=== PATIENT | female | born 1990 | race Hispanic/Latino ===

== ENCOUNTER → 2024-10-12 15:49 | Outpatient (CLI) | payer OTHER, SELFPAY | PROVIDERS: Visit Provider Registered Nurse | DX: R30.0 Dysuria (principal) | CPT/HCPCS: 87086 ==

== ENCOUNTER → 2024-10-22 14:05 | Outpatient (CLI) | payer OTHER, SELFPAY ==
[2024-10-22 14:35] LABS: Add Manual Diff / Slide Review NO; Basophils Absolute Auto 100 /uL (0-100); Basophils Percent Auto 0.5 % (0-2); Eosinophils Absolute Auto 100 /uL (0-450); Eosinophils Percent Auto 0.9 % (2-4); Hematocrit 36.3 % (36-46); Hemoglobin 12.6 g/dL (12.0-16.0); Lymphocytes Absolute Auto 2600 /uL (1100-4500); Lymphocytes Percent Auto 22.6 % (25-40); Mean Corpuscular HGB Conc 34.7 % (30-36); Mean Corpuscular Hemoglobin 31.5 PG (26-34); Mean Corpuscular Volume 90.8 fL (80-100); Monocytes Absolute Auto 700 /uL (0-900); Monocytes Percent Auto 5.9 % (3-14); Neutrophils Absolute Auto 8100 /uL (1500-7000); Neutrophils Percent Auto 70.1 % (50-75); Platelet Count 260 X10^3/uL (150-400); Red Cell Distribution Width 13.2 % (11.6-14.8); White Blood Cell Count 11.5 X10^3/uL (4.5-11.0)
[2024-10-22 14:44] LABS: Alanine Aminotransferase 29 IU/L (<35); Albumin 4.1 g/dL (3.5-5.0); Albumin Globulin Ratio 1.4 (1.0-2.8); Alkaline Phosphatase 60 U/L (38-126); Aspartate Aminotransferase 35 IU/L (14-36); BUN Creatinine Ratio 11.6 (6-22); Bilirubin Total 0.3 mg/dL (0.2-1.3); Blood Urea Nitrogen 5 mg/dL (7-17); Calcium 9.3 mg/dL (8.4-10.2); Carbon Dioxide 21 mmol/L (22-32); Chloride 104 mmol/L (98-107); Estimated Glomerular Filt Rate > 60 mL/min (>60); Globulin 2.9 g/dL (1.7-4.1); Glucose 86 mg/dL (70-99); HEMOLYSIS < 15 (0-50); Potassium 3.6 mmol/L (3.4-5.1); Sodium 134 mmol/L (137-145)
[2024-10-22 19:05] LABS: Hepatitis B Surface Antigen NEGATIVE s/c (NEGATIVE); Rubella Antibody IgG 51.1 IU/mL (>15)
[2024-10-22 19:12] LABS: HIV 1 & 2 Ab/Ag 4th Gen Combo NEGATIVE (NEGATIVE); Hep C Virus Ab w/Reflex Quant NEGATIVE s/c (NEGATIVE)
[2024-10-24 04:36] LABS: RPR Screen Non Reactive (Non Reactive)
[2024-10-24 05:41] LABS: Varicella IgG Antibody Reactive (Non Reactive)
== END ==
PROVIDERS: Referring Provider Family Medicine; Visit Provider Family Medicine
DX: O09.819 Supervision of pregnancy resulting from assisted reproductive technology, unspecified trimester (principal)
CPT/HCPCS: 36415; 80053; 80055; 86787; 86803; 86850; 86900; 86901; 87389

== ENCOUNTER → 2024-11-27 06:55 | Outpatient (CLI) | payer OTHER, SELFPAY ==
--- NOTE | 2024-11-27 07:00 | DI.US.S_ITS ---
PROCEDURE: US OB >= 14 WEEKS FETUS INDICATIONS: anatomy scan OUTSIDE/PRIOR DATING DATA: The calculations are made using the IVF TASHA of 04/04/2025. TECHNIQUE: Real-time scanning was performed of the fetus, with image documentation and biometric measurements. Endovaginal scanning: Not performed COMPARISON: None. FINDINGS: General: A single living intrauterine gestation is present. Presentation: Vertex. Placenta: Placental position is posterior, without previa. Amniotic fluid index: 19.8 cm, normal range is 5-24 cm. Single deepest vertical pocket is 6.3 cm. heart rate: 149 beats per minute. Maternal cervical canal: Closed and measures 4.3 cm long. Normal lower limit is 2.5 cm. biometrics: Biparietal diameter: 5.4 cm, 22 weeks, 3 days. Head circumference: 20.2 cm, 22 weeks, 3 days. Abdominal circumference: 16.9 cm, 21 weeks, 6 days. Femur length: 3.9 cm, 22 weeks, 3 days. Clinically estimated gestational age: 21 weeks, 3 days Composite gestational age from present scan: 21 weeks, 5 days Estimated weight and percentile: 482 g, 69% Anatomic survey: Neuro: Ventricles are non-dilated at less than 10 mm. Cisterna magna is normal at 3-11 mm. Cerebellum is normal in size and morphology. Nuchal skin fold: Normal at less than 6 mm between 14-21 weeks gestational age. Face: Nose and lips, facial profile are normal. Spine: No evidence for spina bifida. Heart: 4-chambered heart is present, with normal ventricular outflow tracts. Diaphragm: Diaphragm is intact. Stomach: Left-sided stomach is present. Kidneys: No hydronephrosis. Normal is less than 5 mm in 2nd trimester, less than 7 mm in 3rd trimester. Cord: 3-vessel cord has orthotopic insertion. Bladder: Normal in size. Extremities: All 4 extremities identified. IMPRESSION: 1. Single live intrauterine gestation with fetus in vertex presentation. heart rate is 149 beats per minute. Normal MICAH at 19.8 cm. 2. Estimated weight is at 69%. 3. Normal anatomic survey. 4. Normal appearing placenta. Placenta position is posterior without previa. We strive to produce accurate, complete, and clear reports of imaging services. To assist us in improving patient care, this report was composed using standard report templates and voice recognition software. Therefore, it may contain abnormal punctuation, insertions and/or omissions. Occasional wrong-word or sound-alike substitutions may occur. Though we review the report and make efforts to correct it, we do recommend that the report be read carefully in proper context to recognize any text inaccuracies. Dictated by: Glenn Guajardo M.D. on 11/27/2024 at 14:12 Approved by: Glenn Guajardo M.D. on 11/27/2024 at 14:14
== END ==
PROVIDERS: Referring Provider Family Medicine; Visit Provider Family Medicine
DX: O09.812 Supervision of pregnancy resulting from assisted reproductive technology, second trimester (principal); Z3A.21 21 weeks gestation of pregnancy
CPT/HCPCS: 76811

== ENCOUNTER → 2024-12-12 14:07 | Outpatient (CLI) | payer OTHER, SELFPAY ==
[2024-12-12 14:36] LABS: Appearance Urine UA CLEAR; Bilirubin Urine UA NEGATIVE (NEGATIVE); Color Urine UA YELLOW; Glucose Urine UA NEGATIVE (Negative); Ketones Urine UA 3+ (NEGATIVE); Leukocyte Esterase Urine UA NEGATIVE (NEGATIVE); Nitrite Urine UA NEGATIVE (Negative); Occult Blood Urine UA 1+ (Negative); Protein Urine UA NEGATIVE (Negative); Specific Gravity Urine UA <=1.005 (1.000-1.035); Urobilinogen Urine UA 0.2 E.U./dL (0.2); pH Urine UA 6.0 (4.5-8.0)
[2024-12-12 14:56] LABS: Protein (Total) Urine Random 12 mg/dL (0-12); Protein Creatinine Ratio Urine 0.36 GRAM/24H
[2024-12-12 15:13] LABS: Add Manual Diff / Slide Review NO; Hematocrit 35.2 % (36-46); Hemoglobin 12.7 g/dL (12.0-16.0); Lymphocytes Absolute Auto 2300 /uL (1100-4500); Mean Corpuscular HGB Conc 35.9 % (30-36); Mean Corpuscular Hemoglobin 32.5 PG (26-34); Mean Corpuscular Volume 90.4 fL (80-100); Platelet Count 249 X10^3/uL (150-400)
[2024-12-12 15:40] LABS: Alanine Aminotransferase 19 IU/L (<35); Albumin 4.0 g/dL (3.5-5.0); Albumin Globulin Ratio 1.4 (1.0-2.8); Alkaline Phosphatase 76 U/L (38-126); Blood Urea Nitrogen 4 mg/dL (7-17); Calcium 9.7 mg/dL (8.4-10.2); Carbon Dioxide 21 mmol/L (22-32); Chloride 104 mmol/L (98-107); Estimated Glomerular Filt Rate > 60 mL/min (>60); Globulin 2.8 g/dL (1.7-4.1); Glucose 72 mg/dL (70-99); HEMOLYSIS < 15 (0-50); Potassium 4.2 mmol/L (3.4-5.1); Sodium 134 mmol/L (137-145); Total Protein 6.8 g/dL (6.3-8.2)
[2024-12-12 15:58] LABS: Urine N gonorrhoeae NOT DETECTED
[2024-12-12 16:10] LABS: Urine Chlamydia NOT DETECTED
== END ==
PROVIDERS: Referring Provider Family Medicine; Visit Provider Family Medicine
DX: O09.819 Supervision of pregnancy resulting from assisted reproductive technology, unspecified trimester (principal); R60.9 Edema, unspecified
CPT/HCPCS: 36415; 80053; 81003; 81015; 82570; 84156; 85025; 87086; 87491; 87591

== ENCOUNTER → 2024-12-15 08:25 | Outpatient (CLI) | payer OTHER, SELFPAY ==
[2024-12-15 09:09] LABS: Protein (Total) Urine Random 14 mg/dL (0-12); Total Volume Urine 2950 mL
== END ==
PROVIDERS: Referring Provider Family Medicine; Visit Provider Family Medicine
DX: R80.9 Proteinuria, unspecified (principal)
CPT/HCPCS: 84156

== ENCOUNTER → 2025-01-22 07:44 | Outpatient (CLI) | payer OTHER, SELFPAY ==
[2025-01-22 08:47] LABS: Glucose Fasting Gestational 82 mg/dL (76-95)
[2025-01-22 10:29] LABS: Glucose 1 Hour Gest 161 mg/dL (76-180)
[2025-01-22 11:15] LABS: Glucose Tol Interp,Gestational INTERPRETATION
[2025-01-22 11:19] LABS: Glucose 2 Hour Gest 118 mg/dL (76-155)
[2025-01-22 12:37] LABS: Glucose 3 Hour Gest 100 mg/dL (76-140)
== END ==
PROVIDERS: Referring Provider Family Medicine; Visit Provider Family Medicine
DX: O09.811 Supervision of pregnancy resulting from assisted reproductive technology, first trimester (principal)
CPT/HCPCS: 36415; 82951; 82952

== ENCOUNTER → 2025-02-04 16:57 | Outpatient (CLI) | payer OTHER, SELFPAY | PROVIDERS: Visit Provider Family Medicine | DX: R82.90 Unspecified abnormal findings in urine (principal); R80.9 Proteinuria, unspecified | CPT/HCPCS: 87086 ==

== ENCOUNTER 2025-02-10 12:53 | Outpatient (CLI) | payer OTHER, SELFPAY ==
--- NOTE | 2025-02-10 13:43 | PM.OBTRLD ---
Visit Information Visit Information Date of evaluation: 02/10/25 Primary OB Provider: Johanna Burrell On-call OB Provider: Moreno Solares Reason for Evaluation: Yes non-stress test non-stress test reason: other (IVF ) Comments/Additional reasons for admission: 34-year-old G1 at GA 32+3 weeks presents for NST. [facility] Medical History (Updated 12/12/24 @ 17:37 by Johanna Burrell MD) Increased urinary protein excretion Edema Wrist fracture, left Multiple fractures Ovarian cyst (~2017) Abnormal Pap smear of cervix (~2011) Ganglion cyst of wrist (~05/2023) Infertility Surgical History History of dental surgery [place] teeth extracted H/O right knee surgery (~2017) Hx of cholecystectomy (~03/2023) Family History Mother Diabetes mellitus Father Hypertension Grandmother Cervical cancer Sister PCOS (polycystic ovarian syndrome) Social History marital status: number of children: 0 household members: spouse lives independently: Yes caregiver/support person: No housing: house pets and animals: Yes (dog) education level: college (Associate's degree) occupational status: employed (active duty [employer], office job) current occupational exposures/hazards: No special lisseth needs: No travel history: recent (domestic only) seatbelt use: always water heater temp set < 120 deg: Yes working smoke detector in home: Yes fire extinguisher in home: Yes carbon monox detector in home: Yes firearms in home: Yes firearms unloaded and locked: Yes do you feel safe at home: Yes second hand exposure: No alcohol intake: former (~1/week when not ) substance use type: does not use during the past year weight has: decreased > 10 lbs (~15 lb ) well-balanced diet: daily or most days daily servings fruits/ve-4 caffeine: Yes (half-caf double shot latte ) Type(s) of exercise: walking Evaluation Evaluation Baseline heart rate: 130 Variability: Moderate (6-25) monitor accelerations: Present Monitor Decelerations: Absent Contraction Frequency (minutes): 5 Uterine Contraction Intensity: Mild (not felt by mother) Category of Tracing: Reactive Status: Category l Diagnosis, Plan/Disposition Final Diagnosis (1) conceived through in vitro fertilization: Status: Acute Plan/Disposition Plan: NST reactive with category 1 strip. Contractions noted on toco, not felt by patient. Recommend adequate hydration. Continue routine testing as indicated, follow-up with primary OB as scheduled. OB Disposition: home
== END 2025-02-10 13:33 | disposition home or self-care (01) ==
LOC: LABOR 13:36 → OB 13:54
PROVIDERS: Referring Provider Family Medicine; Visit Provider Family Medicine
DX: O09.813 Supervision of pregnancy resulting from assisted reproductive technology, third trimester (principal); Z3A.32 32 weeks gestation of pregnancy
CPT/HCPCS: 59025; G0378; G0379

== ENCOUNTER 2025-02-13 13:35 | Outpatient (CLI) | payer OTHER, SELFPAY | END 2025-02-13 14:17 | disposition home or self-care (01) | LOC: LABOR 14:16 → OB 02-16 10:59 | PROVIDERS: Referring Provider Family Medicine; Visit Provider Family Medicine | DX: O14.93 Unspecified pre-eclampsia, third trimester (principal); O09.813 Supervision of pregnancy resulting from assisted reproductive technology, third trimester; Z3A.32 32 weeks gestation of pregnancy | CPT/HCPCS: 59025; G0378; G0379 ==

== ENCOUNTER 2025-02-17 08:29 | Outpatient (CLI) | payer OTHER, SELFPAY ==
--- NOTE | 2025-02-17 08:45 | PM.OBTRLD ---
Visit Information Visit Information Date of evaluation: 02/17/25 Primary OB Provider: Johanna Burrell On-call OB Provider: Janell Hirsch Reason for Evaluation: Yes non-stress test Comments/Additional reasons for admission: 34 yo G1 at 33w3d here for NST in setting of pre-e without severe features. Vital Signs Vital Signs: BP 127/73 [facility] Medical History (Updated 12/12/24 @ 17:37 by Johanna Burrell MD) Increased urinary protein excretion Edema Wrist fracture, left Multiple fractures Ovarian cyst (~2017) Abnormal Pap smear of cervix (~2011) Ganglion cyst of wrist (~05/2023) Infertility Surgical History History of dental surgery [place] teeth extracted H/O right knee surgery (~2017) Hx of cholecystectomy (~03/2023) Family History Mother Diabetes mellitus Father Hypertension Grandmother Cervical cancer Sister PCOS (polycystic ovarian syndrome) Social History marital status: number of children: 0 household members: spouse lives independently: Yes caregiver/support person: No housing: house pets and animals: Yes (dog) education level: college (Associate's degree) 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[employer], office job) current occupational exposures/hazards: No special lisseth needs: No travel history: recent (domestic only) seatbelt use: always water heater temp set < 120 deg: Yes working smoke detector in home: Yes fire extinguisher in home: Yes carbon monox detector in home: Yes firearms in home: Yes firearms unloaded and locked: Yes do you feel safe at home: Yes second hand exposure: No alcohol intake: former (~1/week when not ) substance use type: does not use during the past year weight has: decreased > 10 lbs (~15 lb ) well-balanced diet: daily or most days daily servings fruits/ve-4 caffeine: Yes (half-caf double shot latte ) Type(s) of exercise: walking Evaluation Evaluation Baseline heart rate: 145 Variability: Moderate (6-25) monitor accelerations: Present Monitor Decelerations: Absent Category of Tracing: Reactive Diagnosis, Plan/Disposition Plan/Disposition Plan: 34 yo G1 at 33w3d here for NST in setting of pre-e without severe features. NST reactive. OB Disposition: home
== END 2025-02-17 09:05 | disposition home or self-care (01) ==
LOC: LABOR 08:57 → OB 02-18 10:42
PROVIDERS: Referring Provider Family Medicine; Visit Provider Student in an Organized Health Care Education/Training Program
DX: O14.03 Mild to moderate pre-eclampsia, third trimester (principal); Z3A.33 33 weeks gestation of pregnancy
CPT/HCPCS: 59025; G0378; G0379

== ENCOUNTER 2025-02-20 13:00 | Outpatient (CLI) | payer OTHER, SELFPAY | END 2025-02-20 13:31 | disposition home or self-care (01) | LOC: LABOR 13:24 → OB 02-23 06:02 | PROVIDERS: Referring Provider Family Medicine; Visit Provider Family Medicine | DX: O14.93 Unspecified pre-eclampsia, third trimester (principal); O09.813 Supervision of pregnancy resulting from assisted reproductive technology, third trimester; Z3A.33 33 weeks gestation of pregnancy | CPT/HCPCS: 59025; G0378; G0379 ==

== ENCOUNTER 2025-02-24 08:22 | Observation (INO) | payer OTHER, SELFPAY ==
--- NOTE | 2025-02-24 09:11 | PM.OBTRLD ---
Visit Information Visit Information Date of evaluation: 02/24/25 Primary OB Provider: Johanna Burrell On-call OB Provider: Raissa Gregorio Comments/Additional reasons for admission: 34yo at 34w3d here for NST for pre-eclampsia and IVF . Pt is feeling intermittent mild cramping. No vaginal bleeding or LOF. [facility] Medical History (Updated 02/24/25 @ 10:30 by Raissa Gregorio MD) Increased urinary protein excretion Edema Wrist fracture, left Multiple fractures Ovarian cyst (~2017) Abnormal Pap smear of cervix (~2011) Ganglion cyst of wrist (~05/2023) Infertility Surgical History History of dental surgery [place] teeth extracted H/O right knee surgery (~2017) Hx of cholecystectomy (~03/2023) Family History Mother Diabetes mellitus Father Hypertension Grandmother Cervical cancer Sister PCOS (polycystic ovarian syndrome) Social History marital status: number of children: 0 household members: spouse lives independently: Yes caregiver/support person: No housing: house pets and animals: Yes (dog) education level: college (Associate's degree) occupational status: employed (active duty [employer], office job) current occupational exposures/hazards: No special lisseth needs: No travel history: recent (domestic only) seatbelt use: always water heater temp set < 120 deg: Yes working smoke detector in home: Yes fire extinguisher in home: Yes carbon monox detector in home: Yes firearms in home: Yes firearms unloaded and locked: Yes do you feel safe at home: Yes second hand exposure: No alcohol intake: former (~1/week when not ) substance use type: does not use during the past year weight has: decreased > 10 lbs (~15 lb ) well-balanced diet: daily or most days daily servings fruits/ve-4 caffeine: Yes (half-caf double shot latte ) Type(s) of exercise: walking Objective Labs 02/24/25 09:30 02/24/25 09:30 Evaluation Evaluation Baseline heart rate: 140 Diagnosis, Plan/Disposition Final Diagnosis (1) conceived through in vitro fertilization: Status: Acute (2) 34 weeks gestation of : Status: Acute (3) Preeclampsia: Status: Acute Plan/Disposition Plan: 34yo at 34w3d here for NST for pre-eclampsia and IVF . BP in good range today. Labs completed today were reassuring. Initially with some contractions on monitoring, decreased significantly with hydration, encouraged ongoing hydration at home. U/A without evidence UTI. Stable for d/c home, has OB appt on Sunday. OB Disposition: home
[2025-02-24 09:51] LABS: Add Manual Diff / Slide Review NO; Hematocrit 36.9 % (36-46); Hemoglobin 12.7 g/dL (12.0-16.0); Lymphocytes Absolute Auto 1500 /uL (1100-4500); Mean Corpuscular HGB Conc 34.6 % (30-36); Mean Corpuscular Hemoglobin 31.6 PG (26-34); Mean Corpuscular Volume 91.3 fL (80-100); Platelet Count 222 X10^3/uL (150-400)
[2025-02-24 09:57] LABS: Appearance Urine UA CLEAR; Bilirubin Urine UA NEGATIVE (NEGATIVE); Color Urine UA YELLOW; Glucose Urine UA NEGATIVE (Negative); Ketones Urine UA NEGATIVE (NEGATIVE); Leukocyte Esterase Urine UA NEGATIVE (NEGATIVE); Nitrite Urine UA NEGATIVE (Negative); Occult Blood Urine UA TRACE-INTACT (Negative); Protein Urine UA NEGATIVE (Negative); Specific Gravity Urine UA <=1.005 (1.000-1.035); Urobilinogen Urine UA 0.2 E.U./dL (0.2)
[2025-02-24 09:59] LABS: pH Urine UA 5.5 (4.5-8.0)
[2025-02-24 10:02] LABS: Alanine Aminotransferase 14 IU/L (<35); Albumin 3.9 g/dL (3.5-5.0); Albumin Globulin Ratio 1.2 (1.0-2.8); Alkaline Phosphatase 112 U/L (38-126); Blood Urea Nitrogen 5 mg/dL (7-17); Calcium 9.7 mg/dL (8.4-10.2); Carbon Dioxide 21 mmol/L (22-32); Chloride 106 mmol/L (98-107); Estimated Glomerular Filt Rate > 60 mL/min (>60); Globulin 3.2 g/dL (1.7-4.1); Glucose 104 mg/dL (70-99); HEMOLYSIS < 15 (0-50); Potassium 3.6 mmol/L (3.4-5.1); Sodium 136 mmol/L (137-145); Total Protein 7.1 g/dL (6.3-8.2)
[2025-02-24 10:17] LABS: Culture Indicated Urine Cult Not Indicated
== END 2025-02-24 10:31 | disposition home or self-care (01) ==
PROVIDERS: Family Medicine; Admitting Provider Family Medicine; Referring Provider Family Medicine; Visit Provider Family Medicine
DX: O14.93 Unspecified pre-eclampsia, third trimester (principal); O09.813 Supervision of pregnancy resulting from assisted reproductive technology, third trimester; Z3A.34 34 weeks gestation of pregnancy
CPT/HCPCS: 59025; 59050; 80053; 81001; 85025; G0378; G0379

== ENCOUNTER 2025-02-27 12:24 | Observation (INO) | payer OTHER, SELFPAY ==
[2025-02-27 14:41] LABS: Appearance Urine UA CLEAR; Bilirubin Urine UA NEGATIVE (NEGATIVE); Color Urine UA YELLOW; Glucose Urine UA NEGATIVE (Negative); Ketones Urine UA NEGATIVE (NEGATIVE); Leukocyte Esterase Urine UA NEGATIVE (NEGATIVE); Nitrite Urine UA NEGATIVE (Negative); Occult Blood Urine UA TRACE-INTACT (Negative); Protein Urine UA NEGATIVE (Negative); Specific Gravity Urine UA <=1.005 (1.000-1.035); Urobilinogen Urine UA 0.2 E.U./dL (0.2); pH Urine UA 6.5 (4.5-8.0)
== END 2025-02-27 15:34 | disposition home or self-care (01) ==
PROVIDERS: Admitting Provider Family Medicine; Referring Provider Family Medicine; Visit Provider Family Medicine
DX: O14.93 Unspecified pre-eclampsia, third trimester (principal); O09.813 Supervision of pregnancy resulting from assisted reproductive technology, third trimester; Z3A.34 34 weeks gestation of pregnancy
CPT/HCPCS: 59025; 59050; 81003; G0378; G0379

== ENCOUNTER 2025-03-03 13:38 | Outpatient (CLI) | payer OTHER, SELFPAY | END 2025-03-03 14:40 | disposition home or self-care (01) | LOC: LABOR 14:27 → OB 03-04 07:06 | PROVIDERS: Referring Provider Student in an Organized Health Care Education/Training Program; Visit Provider Student in an Organized Health Care Education/Training Program | DX: O14.93 Unspecified pre-eclampsia, third trimester (principal); O09.813 Supervision of pregnancy resulting from assisted reproductive technology, third trimester; Z3A.35 35 weeks gestation of pregnancy | CPT/HCPCS: 59025; G0378; G0379 ==

== ENCOUNTER 2025-03-06 12:46 | Outpatient (CLI) | payer OTHER, SELFPAY | END 2025-03-06 13:47 | disposition home or self-care (01) | LOC: LABOR 13:47 → OB 14:33 | PROVIDERS: Referring Provider Family Medicine; Visit Provider Family Medicine | DX: O36.8130 Decreased fetal movements, third trimester, not applicable or unspecified (principal); O14.93 Unspecified pre-eclampsia, third trimester; O09.813 Supervision of pregnancy resulting from assisted reproductive technology, third trimester; Z3A.35 35 weeks gestation of pregnancy | CPT/HCPCS: 59025; G0378; G0379 ==

== ENCOUNTER 2025-03-10 08:28 | Outpatient (CLI) | payer OTHER, SELFPAY ==
--- NOTE | 2025-03-10 09:18 | P.TNLD_ITS ---
Visit Information Visit Information Date of evaluation: 03/10/25 Primary OB Provider: Johanna Burrell On-call OB Provider: Cyndie Craig Comments/Additional reasons for admission: preE without severe features Vital Signs Vital Signs: 135/83 117/26 [facility] Medical History (Updated 02/24/25 @ 10:30 by Raissa Gregorio MD) Increased urinary protein excretion Edema Wrist fracture, left Multiple fractures Ovarian cyst (~2017) Abnormal Pap smear of cervix (~2011) Ganglion cyst of wrist (~05/2023) Infertility Surgical History History of dental surgery [place] teeth extracted H/O right knee surgery (~2017) Hx of cholecystectomy (~03/2023) Family History Mother Diabetes mellitus Father Hypertension Grandmother Cervical cancer Sister PCOS (polycystic ovarian syndrome) Social History marital status: number of children: 0 household members: spouse lives independently: Yes caregiver/support person: No housing: house pets and animals: Yes (dog) education level: college (Associate's degree) occupational status: employed (active duty [employer], office job) current occupational exposures/hazards: No special lisseth needs: No travel history: recent (domestic only) seatbelt use: always water heater temp set < 120 deg: Yes working smoke detector in home: Yes fire extinguisher in home: Yes carbon monox detector in home: Yes firearms in home: Yes firearms unloaded and locked: Yes do you feel safe at home: Yes second hand exposure: No alcohol intake: former (~1/week when not ) substance use type: does not use during the past year weight has: decreased > 10 lbs (~15 lb ) well-balanced diet: daily or most days daily servings fruits/ve-4 caffeine: Yes (half-caf double shot latte ) Type(s) of exercise: walking Evaluation Evaluation Baseline heart rate: 140 Variability: Moderate (6-25) monitor accelerations: Present Monitor Decelerations: Absent Category of Tracing: Reactive Status: Category l Diagnosis, Plan/Disposition Plan/Disposition Plan: GBS obtained normotensive strict FM/preE precautions reviewed, return as scheduled OB Disposition: home
[2025-03-10 10:26] LABS: Strep Grp B PCR PRESUMPTIVE NEG GBS
== END 2025-03-10 09:35 | disposition home or self-care (01) ==
LOC: LABOR 09:02 → OB 11:23
PROVIDERS: Obstetrics & Gynecology; Referring Provider Family Medicine; Visit Provider Family Medicine
DX: O14.03 Mild to moderate pre-eclampsia, third trimester (principal); Z3A.36 36 weeks gestation of pregnancy
CPT/HCPCS: 59025; 87081; 87653; G0378; G0379

== ENCOUNTER 2025-03-13 13:07 | Outpatient (CLI) | payer OTHER, SELFPAY | END 2025-03-13 13:54 | disposition home or self-care (01) | LOC: LABOR 13:36 → OB 14:24 | PROVIDERS: Referring Provider Family Medicine; Visit Provider Family Medicine | DX: O14.93 Unspecified pre-eclampsia, third trimester (principal); O09.813 Supervision of pregnancy resulting from assisted reproductive technology, third trimester; Z3A.36 36 weeks gestation of pregnancy | CPT/HCPCS: 59025; G0378; G0379 ==

== ENCOUNTER 2025-03-17 13:06 | Outpatient (CLI) | payer OTHER, SELFPAY ==
--- NOTE | 2025-03-17 13:49 | PM.OBTRLD ---
Visit Information Visit Information Date of evaluation: 03/17/25 Primary OB Provider: Johanna Burrell On-call OB Provider: Cyndie Craig Reason for Evaluation: Yes non-stress test Comments/Additional reasons for admission: IVF Vital Signs Vital Signs: 137/89 --> 15min recheck 131/82 [facility] Medical History (Updated 02/24/25 @ 10:30 by Raissa Gregorio MD) Increased urinary protein excretion Edema Wrist fracture, left Multiple fractures Ovarian cyst (~2017) Abnormal Pap smear of cervix (~2011) Ganglion cyst of wrist (~05/2023) Infertility Surgical History History of dental surgery [place] teeth extracted H/O right knee surgery (~2017) Hx of cholecystectomy (~03/2023) Family History Mother Diabetes mellitus Father Hypertension Grandmother Cervical cancer Sister PCOS (polycystic ovarian syndrome) Social History marital status: number of children: 0 household members: spouse lives independently: Yes caregiver/support person: No housing: house pets and animals: Yes (dog) education level: college (Associate's degree) occupational status: employed (active duty [employer], office job) current occupational exposures/hazards: No special lisseth needs: No travel history: recent (domestic only) seatbelt use: always water heater temp set < 120 deg: Yes working smoke detector in home: Yes fire extinguisher in home: Yes carbon monox detector in home: Yes firearms in home: Yes firearms unloaded and locked: Yes do you feel safe at home: Yes second hand exposure: No alcohol intake: former (~1/week when not ) substance use type: does not use during the past year weight has: decreased > 10 lbs (~15 lb ) well-balanced diet: daily or most days daily servings fruits/ve-4 caffeine: Yes (half-caf double shot latte ) Type(s) of exercise: walking Review of Systems Review of Systems ROS: Yes All systems reviewed with the patient and are negative except as otherwise documented Evaluation Evaluation Baseline heart rate: 140 Variability: Moderate (6-25) monitor accelerations: Present Monitor Decelerations: Absent Category of Tracing: Reactive Status: Category l Diagnosis, Plan/Disposition Plan/Disposition Plan: reactive NST cont testing as scheduled strict PIH precautions
== END 2025-03-17 13:50 | disposition home or self-care (01) ==
LOC: LABOR 13:29 → OB 14:09
PROVIDERS: Referring Provider Family Medicine; Visit Provider Family Medicine
DX: O09.813 Supervision of pregnancy resulting from assisted reproductive technology, third trimester (principal); Z3A.37 37 weeks gestation of pregnancy
CPT/HCPCS: 59025; G0378; G0379

== ENCOUNTER 2025-03-18 13:40 | Outpatient (CLI) | payer OTHER, SELFPAY ==
--- NOTE | 2025-03-18 14:57 | P.TNLD_ITS ---
Visit Information Visit Information Date of evaluation: 03/18/25 Primary OB Provider: Johanna Burrell Comments/Additional reasons for admission: LOF starting last night around 5pm. This AM noticed more leaking. She was not wearing a pad but she did soak her underwear. Fluid is clear with mucous in it. No vaginal bleeding. Vital Signs Vital Signs: BP: 133/87 P: 95 PF[facility] Medical History (Updated 02/24/25 @ 10:30 by Raissa Gregorio MD) Increased urinary protein excretion Edema Wrist fracture, left Multiple fractures Ovarian cyst (~2017) Abnormal Pap smear of cervix (~2011) Ganglion cyst of wrist (~05/2023) Infertility Surgical History History of dental surgery [place] teeth extracted H/O right knee surgery (~2017) Hx of cholecystectomy (~03/2023) Family History Mother Diabetes mellitus Father Hypertension Grandmother Cervical cancer Sister PCOS (polycystic ovarian syndrome) Social History marital status: number of children: 0 household members: spouse lives independently: Yes caregiver/support person: No housing: house pets and animals: Yes (dog) education level: college (Associate's degree) occupational status: employed (active duty [employer], office job) current occupational exposures/hazards: No special lisseth needs: No travel history: recent (domestic only) seatbelt use: always water heater temp set < 120 deg: Yes working smoke detector in home: Yes fire extinguisher in home: Yes carbon monox detector in home: Yes firearms in home: Yes firearms unloaded and locked: Yes do you feel safe at home: Yes second hand exposure: No alcohol intake: former (~1/week when not ) substance use type: does not use during the past year weight has: decreased > 10 lbs (~15 lb ) well-balanced diet: daily or most days daily servings fruits/ve-4 caffeine: Yes (half-caf double shot latte ) Type(s) of exercise: walking Review of Systems Review of Systems Narrative: + LOF - vaginal bleeding - vaginal discharge - ANN Evaluation Evaluation Baseline heart rate: 150 Variability: Moderate (6-25) monitor accelerations: Present Monitor Decelerations: Absent Non-invasive Membranes Rupture Test: negative Diagnosis, Plan/Disposition Plan/Disposition Plan: 34yo G1 presenting at 37w4d for LOF. Amnisure negatve. BP mildly elevated to 130s, stable from previous readings, no Pre-E sx. FHT reassuring. Pt d/c'ed home, plan for f/up at scheduled apt OB Disposition: home
== END 2025-03-18 15:10 | disposition home or self-care (01) ==
LOC: LABOR 14:47 → OB 03-19 06:19
PROVIDERS: Referring Provider Family Medicine; Visit Provider Family Medicine
DX: Z03.71 Encounter for suspected problem with amniotic cavity and membrane ruled out (principal); Z3A.37 37 weeks gestation of pregnancy
CPT/HCPCS: 59025; 84112; G0378; G0379

== ENCOUNTER 2025-03-20 11:46 | Outpatient (CLI) | payer OTHER, SELFPAY ==
--- NOTE | 2025-03-20 12:52 | DI.US.S_ITS ---
PROCEDURE: US OB BIOPHYSICAL PROFILE INDICATIONS: DECREASED MOTION OUTSIDE/PRIOR DATING DATA: Last menstrual period (LMP): 06/28/24. IVF utilized. IVF-based estimated date of delivery (TASHA): 04/04/25 First dating scan (date and location): 11/27/24. Estimated date of delivery (TASHA) from first dating scan: 03/31/25. The calculations are made using the IVF TASHA of 04/04/25. TECHNIQUE: Real-time scanning was performed of the fetus for biophysical profile, with image documentation. Color and pulse Doppler interrogation was also performed of the umbilical artery near its insertion into the placenta. Endovaginal scanning: Not needed COMPARISON: [facility], , OB >= 14 WEEKS FETUS, 11/27/2024, 7:03. FINDINGS: General: A single living intrauterine gestation is present. Presentation: Vertex. Placenta: Placental position is posterior , without previa. Amniotic fluid index: 14.6 cm, normal range is 5-24 cm. Single deepest vertical pocket is 8.2 cm. heart rate: 135 beats per minute. Clinically estimated gestational age: 37 weeks 6 days Biophysical profile: Tone: 2 points. Movement: 2 points. Respiration: 2 points. Largest pocket of fluid: 2 points. IMPRESSION: Biophysical profile is normal at 8 of 8 possible points. No anomaly identified. We strive to produce accurate, complete, and clear reports of imaging services. To assist us in improving patient care, this report was composed using standard report templates and voice recognition software. Therefore, it may contain abnormal punctuation, insertions and/or omissions. Occasional wrong-word or sound-alike substitutions may occur. Though we review the report and make efforts to correct it, we do recommend that the report be read carefully in proper context to recognize any text inaccuracies. Dictated by: Vinay Gallo M.D. on 03/20/2025 at 13:05 Approved by: Vinay Gallo M.D. on 03/20/2025 at 13:11
== END 2025-03-20 13:00 | disposition home or self-care (01) ==
LOC: LABOR 12:18 → OB 14:06
PROVIDERS: Referring Provider Family Medicine; Visit Provider Family Medicine
DX: O14.93 Unspecified pre-eclampsia, third trimester (principal); O09.813 Supervision of pregnancy resulting from assisted reproductive technology, third trimester; Z3A.37 37 weeks gestation of pregnancy
CPT/HCPCS: 59025; 76819; G0378; G0379

== ENCOUNTER 2025-03-22 18:47 | Inpatient (IN) | payer OTHER, SELFPAY ==
[2025-03-22 19:47] VITALS: BP 129/73
[2025-03-22 20:00] LABS: Add Manual Diff / Slide Review NO; Hematocrit 35.2 % (36-46); Hemoglobin 12.6 g/dL (12.0-16.0); Lymphocytes Absolute Auto 2300 /uL (1100-4500); Mean Corpuscular HGB Conc 35.7 % (30-36); Mean Corpuscular Hemoglobin 32.1 PG (26-34); Mean Corpuscular Volume 89.8 fL (80-100); Platelet Count 207 X10^3/uL (150-400)
[2025-03-22 20:10] LABS: Alanine Aminotransferase 15 IU/L (<35); Albumin 3.7 g/dL (3.5-5.0); Albumin Globulin Ratio 1.2 (1.0-2.8); Alkaline Phosphatase 140 U/L (38-126); Blood Urea Nitrogen 6 mg/dL (7-17); Calcium 9.2 mg/dL (8.4-10.2); Carbon Dioxide 17 mmol/L (22-32); Chloride 108 mmol/L (98-107); Estimated Glomerular Filt Rate > 60 mL/min (>60); Globulin 3.2 g/dL (1.7-4.1); Glucose 123 mg/dL (70-99); HEMOLYSIS < 15 (0-50); Potassium 3.6 mmol/L (3.4-5.1); Sodium 133 mmol/L (137-145); Total Protein 6.9 g/dL (6.3-8.2)
[2025-03-22 20:38] LABS: Protein (Total) Urine Random 16 mg/dL (0-12); Protein Creatinine Ratio Urine 0.40 GRAM/24H
[2025-03-22] MEDS: SERTRALINE 50 MG TABLET 150 MG PO (21:35)
[2025-03-23] MEDS: ACETAMINOPHEN 325 MG TABLET 975 MG PO (00:29)
[2025-03-23 01:42] VITALS: BP 139/83; PULSE 83
[2025-03-23] MEDS: LABETALOL 100 MG TABLET 200 MG PO ×3 (01:42→15:11)
--- NOTE | 2025-03-23 07:49 | PM.OBHP.IH.1 ---
OB HPI Date/Time Date of admission: 03/22/25 Date Patient Seen: 03/23/25 Time Patient Seen: 07:50 History of Present Condition Chief complaint: Induction TASHA Calculator Estimated Delivery Date Method Current WG Current Estimate 04/04/25 Conception 38w 2d : 1 Para: 0 Narrative: 34-year-old G1 presenting at 38 weeks 1 day for medical induction of labor for macrosomia with AC >99th percentile at 34 weeks 5 days and proteinuria with nml BPs. Delivery timing per [facility]. conceived via IVF with 5 day embryo transfer. echo was performed and is normal. complicated by proteinuria development at 27 weeks with mildly elevated blood pressures. Blood pressures have been moderate range and have not required antihypertensive treatment thus far. also complicated by pelvic kidney (right kidney located within the pelvis adjacent to the bladder, left kidney in normal location, normal-appearing bladder and ureters) seen by [facility] urology, planning for follow-up with Urology at 4-6 weeks of life for baby. During [facility] ultrasounds, infant found to be macrosomic with AC at the 99th percentile at 36 weeks 3 days. EFW 3450g (92%ile) at that time. care: good care Dating criteria OB: other (IVF trasnfer) Ultrasounds: normal 1st trimester US and abnormal US findings (AC at the 99th percentile at 36 weeks 3 days. EFW 3450g (92%ile) at that time. pelvic kidney ) Obstetrical complications: other (proteinuria with rising BPs ) Medical complications OB: none Indications Indication for induction OB: gestational HTN/pre-eclampsia Preadmission Labs Last OB Lab Results: Blood Type O Negative 03/22/25, 19:48 Antibody Screen Negative 03/22/25, 19:48 Hct, (36-46) 35.2 % L 03/22/25, 19:48 Hgb, (12.0-16.0) 12.6 g/dL 03/22/25, 19:48 Hep Bs Antigen, (NEGATIVE) Negative s/c 10/22/24, 14:12 Hepatitis C Antibody, (NEGATIVE) Negative s/c 10/22/24, 14:12 Rubella Antibody, (>15) 51.1 IU/mL 10/22/24, 14:12 VZV IgG Antibody, (Non Reactive) Reactive 10/22/24, 14:12 Glucose 1 Hr 50 gm, (76-139) 156 mg/dL H 01/08/25, 14:43 Group B Strep (PCR) Presumptive neg gbs 03/10/25, 09:25 Genetic Screens: Cell-free DNA: Normal Evaluation Evaluation Variability: Moderate (6-25) monitor accelerations: Present Monitor Decelerations: Absent Contraction Frequency (minutes): 0 Status: Category l Dilation (cm): 0 Effacement (%): 0 Dilation: Closed Effacement: 0-30% station: -4 Position of cervix: posterior Consistency: firm Armstrong score: 0 PFSH Medical History (Updated 02/24/25 @ 10:30 by Raissa Gregorio MD) Increased urinary protein excretion Edema Wrist fracture, left Multiple fractures Ovarian cyst (~2017) Abnormal Pap smear of cervix (~2011) Ganglion cyst of wrist (~05/2023) Infertility Surgical History History of dental surgery [place] teeth extracted H/O right knee surgery (~2017) Hx of cholecystectomy (~03/2023) Family History Mother Diabetes mellitus Father Hypertension Grandmother Cervical cancer Sister PCOS (polycystic ovarian syndrome) Social History marital status: number of children: 0 household members: spouse lives independently: Yes caregiver/support person: No housing: house pets and animals: Yes (dog) education level: college (Associate's degree) occupational status: employed (active duty [employer], office job) current occupational exposures/hazards: No special lisseth needs: No travel history: recent (domestic only) seatbelt use: always water heater temp set < 120 deg: Yes working smoke detector in home: Yes fire extinguisher in home: Yes carbon monox detector in home: Yes firearms in home: Yes firearms unloaded and locked: Yes do you feel safe at home: Yes Smoking Status: Never smoker second hand exposure: No alcohol intake: former (~1/week when not ) substance use type: does not use during the past year weight has: decreased > 10 lbs (~15 lb ) well-balanced diet: daily or most days daily servings fruits/ve-4 caffeine: Yes (half-caf double shot latte ) Type(s) of exercise: walking Meds Home Medications and Allergies Home Medications ?Medication ?Instructions ?Recorded ?Confirmed ?Type vit no.95-ferrous 1 tab PO DAILY 09/05/24 03/22/25 History fumarate 28 mg-folic acid 800 mcg tablet ( Multivitamins) sertraline 150 mg capsule 150 mg PO DAILY 09/05/24 03/22/25 History Allergies Allergy/AdvReac Type Severity Reaction Status Date / Time Fish Containing Products Allergy Severe Anaphylaxis Verified 03/22/25 19:48 shellfish derived Allergy Severe Anaphylaxis Verified 03/22/25 19:48 Milk Containing Products Allergy Mild Rash Verified 03/22/25 19:48 (Dairy) sesame oil Allergy Mild Rash Verified 03/22/25 19:48 tomato Allergy Mild Rash Verified 03/22/25 19:48 Review of Systems Review of Systems Narrative: - regular contractions - LOF + movement - vaginal bleeding OB Exam Narrative Exam Narrative: GEN: comfortable appearing Pulm: breathing comfortably on RA ABd: gravid MSK: laying in bed, moving all extremities neuro: non-focal Objective Labs 03/22/25 19:48 03/22/25 19:48 Labs: Laboratory Results - last 24 hr 03/22/25 03/22/25 19:48 20:05 WBC 9.5 RBC 3.92 L Hgb 12.6 Hct 35.2 L MCV 89.8 MCH 32.1 MCHC 35.7 RDW 13.6 Plt Count 207 Neut % (Auto) 68.5 Lymph % (Auto) 23.8 L [place] % (Auto) 6.4 Eos % (Auto) 1.0 L Baso % (Auto) 0.3 Neut # (Auto) 6500 Lymph # (Auto) 2300 [place] # (Auto) 600 Eos # (Auto) 100 Baso # (Auto) 0 Sodium 133 L Potassium 3.6 Chloride 108 H Carbon Dioxide 17 L BUN 6 L Creatinine 0.44 L Estimated GFR > 60 BUN/Creatinine Ratio 13.6 Glucose 123 H Calcium 9.2 Total Bilirubin 0.2 AST 24 ALT 15 Alkaline Phosphatase 140 H Total Protein 6.9 Albumin 3.7 Globulin 3.2 Albumin/Globulin Ratio 1.2 U Random Total Protein 16 H Urine Creatinine 39.09 Protein/Creatinin Ratio 0.40 Blood Type O Negative Antibody Screen Negative Assessment and Plan Assessment and Plan Assessment and Plan narrative: 34-year-old G1 presenting at 38w1d for medical induction of labor for macrosomia with AC >99th percentile at 34 weeks 5 days and proteinuria with nml BPs. Delivery timing per [facility]. conceived via IVF with 5 day embryo transfer. echo was performed and is normal. complicated by proteinuria development at 27 weeks with mildly elevated blood pressures. Blood pressures have been moderate range and have not required antihypertensive treatment thus far. also complicated by pelvic kidney (right kidney located within the pelvis adjacent to the bladder, left kidney in normal location, normal-appearing bladder and ureters) seen by [facility] urology, planning for follow-up with Urology at 4-6 weeks of life for baby. During MFM ultrasounds, infant found to be macrosomic with AC at the 99th percentile at 36 weeks 3 days. EFW 3450g (92%ile) at that time. # SIUP at 38w2d today: - admit to LD - continuous monitoring - S/p Po cytotec 50mcg x3 (20:00 on 03/22, 00:00 and 04:00, next dose at 08:00) - plan to recheck at 12:00 before next dose to determine next step and consider rivas balloon - Anesthesia consult - CBC, TS - cephalic by bedside US overnight - GBS negative # Pre-ecclampsia: elevated proteinura initally without clear dxof PreE but now with BPs elevating overnight, started on Labetolol. No SF - contLabvetolol 200mg TID # MAcrosomia # AC >99%ile: During MFM ultrasounds, found to be macrosomic with AC at the 99th percentile at 36 weeks 3 days. EFW 3450g (92%ile) at that time. 1 hr GTT elevated to 156, f/up 3 hr all i nml range - stools at bedsde for delivery # pelvic kidney - right kidney located within the pelvis adjacent to the bladder, left kidney in normal location, normal-appearing bladder and ureters. Was seen by [facility] urology, planning for follow-up with Urology at 4-6 weeks of life for baby. - outpt f/up unless concerns with at delivery Time-Based Coding :: [TOTAL MINUTES] spent with patient and on the chart (including review of chart, obtaining history, exam, reviewing outside data, placing orders, documenting exam and treatment plan, and counseling patient) on [DATE].
[2025-03-23 09:08] VITALS: BP 115/72; PULSE 93
[2025-03-23 15:11] VITALS: BP 138/82; PULSE 91
--- NOTE | 2025-03-23 20:42 | PM.OBPNLAB ---
Date/Time Date Patient Seen: 03/23/25 Time Patient Seen: 18:00 Pain Control Pain control: tolerating well Pelvic Exam Dilation (cm): 0 Effacement (%): 0 station: -4 Amniotic membrane status: Intact Contractions Contractions on admission: irregular Monitor mode: External Contraction pattern: Irregular Contraction intensity: Mild Status status: Category l Heart Rate Baseline: 150 Monitor Accelerations: Present Monitor Decelerations: Absent Monitor Variability: Moderate Assessment and Plan Assessment: induction ongoing Comments: 34-year-old G1 at 38w2d here for ongoing for medical induction of labor for macrosomia with AC >99th percentile at 36 weeks 3 days and Pre-Eclampsia. # SIUP at 38w2d today # IVF : - continuous monitoring - S/p Po cytotec 50mcg x6 - last SVE very painful, deferring rivas balloon for now, will move to low dose Pit at 21:00 for 12 hrs then consider rivas in the AM + repeat cytotec - Anesthesia consult - cephalic by bedside US at admission - GBS negative # Pre-ecclampsia: BPs well controlled on Labetalol, no IV Anti-hypertensives needed thus far. - cont Labetalol 200mg TID # MAcrosomia # AC >99%ile: During MFM ultrasounds, infant found to be macrosomic with AC at the 99th percentile at 36 weeks 3 days. EFW 3450g (92%ile) at that time. 1 hr GTT elevated to 156, f/up 3 hr all i nml range - stools at bedside for delivery # pelvic kidney - right kidney located within the pelvis adjacent to the bladder, left kidney in normal location, normal-appearing bladder and ureters. Was seen by [facility] urology, planning for follow-up with Urology at 4-6 weeks of life for baby. - outpt f/up unless concerns with at delivery
[2025-03-23] MEDS: OXYTOCIN PREMIX 30 UNIT/500 ML PLAST..BAG IV (20:59)
[2025-03-23] MEDS: SERTRALINE 50 MG TABLET 150 MG PO (23:06)
[2025-03-24] MEDS: LACTATED RINGERS 1,000 ML 100 ML IV (06:01)
--- NOTE | 2025-03-24 08:29 | PM.OBPNLAB ---
Date/Time Date Patient Seen: 03/24/25 Time Patient Seen: 08:00 Pain Control Pain control: tolerating well Comments: getting more uncomfortable, crampy, contractions occuring regularly Pelvic Exam Dilation (cm): 2 Effacement (%): 0 station: -3 Amniotic membrane status: Intact Contractions Contractions on admission: none Monitor mode: External Pitocin rate (mU/min): 12 Contraction frequency (min): 2 Contraction pattern: Irregular Contraction intensity: Mild Status status: Category l Heart Rate Baseline: 155 Monitor Accelerations: Present Monitor Decelerations: Absent Monitor Variability: Moderate Assessment and Plan Assessment: induction ongoing Comments: 34-year-old G1 at 38w3d here for ongoing for medical induction of labor for macrosomia with AC >99th percentile at 36 weeks 3 days and Pre-Eclampsia. Making some change but SVE very challenging due to pt discomfort, able to palpate cervix and starting to dilate, 1-2cm on this check at 08:10, but still thick and baby very high # SIUP at 38w3d today # IVF : - continuous monitoring - S/p Po cytotec 50mcg x6 - s/p 12 hours Pit - Start Cytotec 50mcg 1 hr after stopping Pit - last SVE very painful, deferring rivas balloon for now, will move to low dose Pit at 21:00 for 12 hrs then consider rivas in the AM + repeat cytotec - Anesthesia consult - cephalic by bedside US at admission - GBS negative # Pre-ecclampsia: BPs well controlled on Labetalol, no IV Anti-hypertensives needed thus far. - cont Labetalol 200mg TID # MAcrosomia # AC >99%ile: During MFM ultrasounds, infant found to be macrosomic with AC at the 99th percentile at 36 weeks 3 days. EFW 3450g (92%ile) at that time. 1 hr GTT elevated to 156, f/up 3 hr all i nml range - stools at bedside for delivery # pelvic kidney - right kidney located within the pelvis adjacent to the bladder, left kidney in normal location, normal-appearing bladder and ureters. Was seen by [facility] urology, planning for follow-up with Urology at 4-6 weeks of life for baby. - outpt f/up unless concerns with at delivery
[2025-03-24 09:20] VITALS: BP 133/72; PULSE 88
[2025-03-24] MEDS: LABETALOL 100 MG TABLET 200 MG PO ×3 (09:20→21:04)
--- NOTE | 2025-03-24 14:28 | PM.OBPNLAB ---
Date/Time Date Patient Seen: 03/24/25 Time Patient Seen: 14:28 Pain Control Pain control: tolerating well Comments: contractions tapered with transition to cytotec Pelvic Exam Dilation (cm): 2 Effacement (%): 0 station: -3 Amniotic membrane status: Ruptured Contractions Contractions on admission: none Monitor mode: External Pitocin rate (mU/min): 12 Contraction frequency (min): 2 Contraction pattern: Irregular Contraction intensity: Mild Status status: Category l Heart Rate Baseline: 150 Monitor Accelerations: Present Monitor Decelerations: Absent Monitor Variability: Moderate Assessment and Plan Assessment: induction ongoing Comments: 34-year-old G1 at 38w3d here for ongoing for medical induction of labor for macrosomia with AC >99th percentile at 36 weeks 3 days and Pre-Eclampsia. No cervical change since restarting cytotec. Attempted rivas placement but while preparing to place, SROM with thick mec at 14:16. Rivas placement aborted. Will restart Pitocin # SIUP at 38w3d today # IVF : - continuous monitoring - S/p Po cytotec 50mcg x6 03/22-3 - s/p 12 hours Pit overnight on 03/23 - 03/24 - s/p 2 doses cytotec this AM - 03/24 - restart Pitocin now - Anesthesia consult - cephalic by bedside US at admission - GBS negative # Pre-ecclampsia: BPs well controlled on Labetalol, no IV Anti-hypertensives needed thus far. - cont Labetalol 200mg TID # MAcrosomia # AC >99%ile: During MFM ultrasounds, infant found to be macrosomic with AC at the 99th percentile at 36 weeks 3 days. EFW 3450g (92%ile) at that time. 1 hr GTT elevated to 156, f/up 3 hr all i nml range - stools at bedside for delivery # pelvic kidney - right kidney located within the pelvis adjacent to the bladder, left kidney in normal location, normal-appearing bladder and ureters. Was seen by [facility] urology, planning for follow-up with Urology at 4-6 weeks of life for baby. - outpt f/up unless concerns with at delivery
[2025-03-24 15:01] VITALS: BP 126/74; PULSE 74
--- NOTE | 2025-03-24 19:25 | PM.AN.REGBLK ---
[facility] <Richard Buck, DO - Last Filed: 03/25/25 16:18> Pre-procedure Procedure: Continuous Lumbar Epidural for L&D Attending OB provider: Johanna Burrell PMH/LUPIS narrative: at 38+ IOL for HTN/pre-ecclampsia, macrosomia. BP's currently controlled with labetolol 200 tid. No medical complications. Hx: No personal or family history of anesthesia problems. ASA Class: III (pre-E, BMI 37) Labs: Hct 35.2 % (36-46) L 03/22/25 19:48 Plt Count 207 X10^3/uL (150-400) 03/22/25 19:48 Medications: Current Medications Generic Name Dose Route Start Last Admin Trade Name Freq PRN Reason Stop Dose Admin Acetaminophen 975 mg 03/23/25 00:22 03/23/25 00:29 Acetaminophen 325 Mg Tablet PO 975 mg Q8H PRN Administration Pain, Mild (1-3) Carboprost Tromethamine 250 mcg 03/22/25 19:35 Carboprost 250 Mcg/Ml Ampul IM Q90M PRN Bleeding Oxytocin/Lactated Ringer's 30 unit in 500 mls @ 200 mls/hr 03/22/25 19:35 Oxytocin Premix IV CONT PRN Bleeding Protocol Tranexamic Acid 1,000 mg/ 100 mls @ 600 mls/hr 03/22/25 19:35 Sodium Chloride IV NOW PRN Bleeding Oxytocin/Lactated Ringer's 30 unit in 500 mls @ 2 mls/hr 03/23/25 21:00 03/23/25 20:59 Oxytocin Premix IV 2 milliunit/min TITRATE CANDACE 2 mls/hr Protocol Administration 2 MILLIUNIT/MIN Labetalol HCl 200 mg 03/23/25 01:45 03/24/25 15:01 Labetalol 100 Mg Tablet PO 200 mg TID CANDACE Administration Lidocaine HCl 20 ml 03/22/25 19:35 Lidocaine 1% 20 Ml INJ INTRA-OP PRN Post Delivery Methylergonovine Maleate 0.2 mg 03/22/25 19:35 Methylergonovine 0.2 Mg Tablet PO Q6HR PRN Heavy Bleeding Methylergonovine Maleate 0.2 mg 03/22/25 19:35 Methylergonovine 0.2 Mg/Ml Vial IM NOW PRN Bleeding Mineral Oil 30 ml 03/22/25 19:35 Mineral Oil 30 Ml Udc TOP PRN PRN Version Misoprostol 800 mcg 03/22/25 19:35 Misoprostol 200 Mcg Tablet UT NOW PRN Bleeding Misoprostol 400 mcg 03/22/25 19:35 Misoprostol 200 Mcg Tablet SL NOW PRN Bleeding Misoprostol 50 mcg 03/22/25 19:45 03/24/25 09:20 Misoprostol 25 Mcg Tablet PO 50 mcg Q4H CANDACE Administration Naloxone HCl 0.2 mg 03/22/25 19:35 Naloxone 0.4 Mg/Ml Vial IV Q2MIN PRN Opiate Reversal Oxytocin 10 unit 03/22/25 19:35 Oxytocin 10 Unit/Ml Vial IM NOW PRN Bleeding Sertraline HCl 150 mg 03/22/25 21:00 03/23/25 23:06 Sertraline 50 Mg Tablet PO 150 mg BEDTIME CANDACE Administration Allergies: Allergies Allergy/AdvReac Type Severity Reaction Status Date / Time Fish Containing Products Allergy Severe Anaphylaxis Verified 03/22/25 19:48 shellfish derived Allergy Severe Anaphylaxis Verified 03/22/25 19:48 Milk Containing Products Allergy Mild Rash Verified 03/22/25 19:48 (Dairy) sesame oil Allergy Mild Rash Verified 03/22/25 19:48 tomato Allergy Mild Rash Verified 03/22/25 19:48 Procedure Insertion date: 03/24/25 Insertion time: 19:10 Prep/Local: betadine x3 and 1% lidocaine Interspace: L34 Patient position: sitting Needle: 18 gauge Hustead (CSE: 27g Pencan through Hustead, clear CSF. 1mL 0.25% MPF bupiv.) Loss of resistance with: saline SHERMAN at (cm): 7 Catheter placed at SKIN (cm): 13 Catheter in SPACE (cm): 6 Insertion: No CSF, No Blood, No Paresthesia with insertion, No Paresthesia with injection and No Test dose reaction Initial Medications TEST DOSE time: 19:11 TEST DOSE: 1.5% lidocaine with epinephrine 1:200k (mL): 3 BOLUS DOSE time: 19:20 BOLUS DOSE (mL): 4 BOLUS DOSE med: other (infusate) Infusion INFUSION: 0.125% bupivacaine and with fentanyl 2 mcg/mL Initial rate (mL/hr): 8 Subsequent interventions: 0655 7cc 0.25% bupivicaine for left sided abdominal pain 0725 infusion increased to 11cc/h 0950 air in line infusate primed- off x 15 minutes -5cc 0.25% marcaine bolus TO OR FOR CSECTION Post-procedure Anesthesia date START: 03/24/25 Anesthesia time START: 18:59 Anesthesia date END: 03/25/25 Anesthesia time END: 14:15 Post-procedure Anesthesia Assessment: Yes CV function: HR/BP stable, Yes Resp function: RR/sat/airway adequate, Yes Post-op hydration adequate, Yes Pain control adequate, Yes Nausea & vomiting absent, Yes Temperature > 36 C, Yes Mental status appropriate and No Anesthesia complications <Angeli Westfall CRNA - Last Filed: 03/25/25 12:03> Infusion Subsequent interventions: 0655 7cc 0.25% bupivicaine for left sided abdominal pain 0725 infusion increased to 11cc/h 0950 air in line infusate primed- off x 15 minutes -5cc 0.25% marcaine bolus
[2025-03-24 21:04] VITALS: BP 109/60; PULSE 73
[2025-03-24] MEDS: SERTRALINE 50 MG TABLET 150 MG PO (21:04)
[2025-03-25] MEDS: FENT 2MCG/ML BUPIV 0.125% EPI 200 MCG/100 ML PLAST..BAG 8 MCG EPIDURAL ×2 (02:08→09:45)
[2025-03-25] MEDS: LACTATED RINGERS 1,000 ML 999 ML IV (02:08)
[2025-03-25] MEDS: LACTATED RINGERS 1,000 ML 100 ML IV (09:45)
[2025-03-25 11:30] VITALS: BP 135/79; PULSE 103
[2025-03-25] MEDS: LABETALOL 100 MG TABLET 200 MG PO ×3 (11:30→23:28)
--- NOTE | 2025-03-25 13:23 | PM.OBPNLAB ---
Date/Time Date Patient Seen: 03/24/25 Time Patient Seen: 14:28 Pain Control Pain control: epidural Comments: feeling uncomfortable, no fevers Pelvic Exam Dilation (cm): 6 Effacement (%): 70 station: -3 Amniotic membrane status: Ruptured Contractions Contractions on admission: none Monitor mode: External Pitocin rate (mU/min): 4 Contraction frequency (min): 5 Contraction pattern: Irregular Contraction intensity: Mild Status status: Category ll Heart Rate Baseline: 150 Monitor Accelerations: Present Monitor Decelerations: Late (variable and late decels when increasing Pit to 6 ) and Variable Monitor Variability: Moderate Assessment and Plan Assessment: induction ongoing Comments: 34-year-old G1 at 38w4d here for ongoing for medical induction of labor for macrosomia with AC >99th percentile at 36 weeks 3 days and Pre-Eclampsia. No cervical change since restarting cytotec. Attempted rivas placement but while preparing to place, SROM with thick mec at 14:16. Progressing slowly, 5cm this AM at 5am, 6cm at 13:00. station unchanged. Approaching 24 hours ruptured at 14:00. No fevers. NRFT with increasing Pitocin to 6mu/min regardless of position. considered IUPC but unable to increase Pitocin due to status regardless. will give 2 hours and recheck, if no change in SVE, plan to move to CS. # SIUP at 38w4d today # IVF : - continuous monitoring - S/p Po cytotec 50mcg x6 03/22-3 - s/p 12 hours Pit overnight on 03/23 - 03/24 - s/p 2 doses cytotec this AM - 03/24 - cont Pitocin, currently only tolerating 4mu/min - Anesthesia consult - cephalic by bedside US at admission - GBS negative # Pre-ecclampsia: BPs well controlled on Labetalol, no IV Anti-hypertensives needed thus far. - cont Labetalol 200mg TID # MAcrosomia # AC >99%ile: During MFM ultrasounds, infant found to be macrosomic with AC at the 99th percentile at 36 weeks 3 days. EFW 3450g (92%ile) at that time. 1 hr GTT elevated to 156, f/up 3 hr all i nml range - stools at bedside for delivery # pelvic kidney - right kidney located within the pelvis adjacent to the bladder, left kidney in normal location, normal-appearing bladder and ureters. Was seen by [facility] urology, planning for follow-up with Urology at 4-6 weeks of life for baby. - outpt f/up unless concerns with at delivery
--- NOTE | 2025-03-25 13:41 | PM.OBPNLAB ---
Date/Time Date Patient Seen: 03/25/25 Time Patient Seen: 13:41 Pain Control Comments: prolonged deceleration resistant to position changes and turning off Pitocin, lasting approximately 5min Pelvic Exam Dilation (cm): 6 Effacement (%): 70 station: -3 Amniotic membrane status: Ruptured Contractions Contractions on admission: none Monitor mode: External Pitocin rate (mU/min): 4 Contraction frequency (min): 5 Contraction pattern: Irregular Contraction intensity: Mild Status status: Category ll Heart Rate Baseline: 150 Monitor Accelerations: Present Monitor Decelerations: Late and Prolonged (5 min prolonged late deceleration ) Monitor Variability: Moderate Assessment and Plan Assessment: induction ongoing Plan: Comments: 34-year-old G1 at 38w4d here for ongoing for medical induction of labor for macrosomia with AC >99th percentile at 36 weeks 3 days and Pre-Eclampsia. No cervical change since restarting cytotec. Attempted rivas placement but while preparing to place, SROM with thick mec at 14:16. Progressing slowly, 5cm this AM at 5am, 6cm at 13:00. station unchanged. APro;longed late decel present, resistant to position changes and turning off Pitocin. Eventually resolved, HR now back to baseline. Due to prolonged decel remote from delivery and minimal change, will move velia CS now # SIUP at 38w4d today # IVF : - continuous monitoring - S/p Po cytotec 50mcg x6 03/22-3 - s/p 12 hours Pit overnight on 03/23 - 03/24 - s/p 2 doses cytotec this AM - 03/24 - move to CS now for NRFHT remote from delivery, failure to progress - PPH meds in room for increased hemorrhage risk - Anesthesia consult - cephalic by bedside US at admission - GBS negative # Pre-ecclampsia: BPs well controlled on Labetalol, no IV Anti-hypertensives needed thus far. - cont Labetalol 200mg TID # MAcrosomia # AC >99%ile: During MFM ultrasounds, infant found to be macrosomic with AC at the 99th percentile at 36 weeks 3 days. EFW 3450g (92%ile) at that time. 1 hr GTT elevated to 156, f/up 3 hr all i nml range - stools at bedside for delivery # pelvic kidney - right kidney located within the pelvis adjacent to the bladder, left kidney in normal location, normal-appearing bladder and ureters. Was seen by [facility] urology, planning for follow-up with Urology at 4-6 weeks of life for baby. - outpt f/up unless concerns with at delivery counseling: It was explained to the patient that a section is a surgery to deliver the baby through an incision in the abdominal wall and uterus.? All procedures can be associated with risk and unforeseen complications, which can be immediate or delayed.? Risks and complications of section include, but are not limited to:? infection of the uterus, pelvic organs, or skin; inadvertent injury to internal organs such as the bowel, bladder, or possibly even the baby; blood loss, transfusion, and/or life-threatening hemorrhage requiring hysterectomy; blood clots in the legs, pelvic organs, or lungs; adverse reaction to medications or anesthesia during surgery; development of placenta accreta spectrum in a subsequent ; and increased risk of section in a subsequent .
--- NOTE | 2025-03-25 14:39 | SUR.OPER ---
Supine on padded OR bed, head on pillow, arms secured on padded arm boards at <90 degrees abduction, legs uncrossed, safety belt at thigh, tape over blanket over lower legs. Cannon in place prior to OR, Cannon tube padded from patient skin. All pressure points padded and protected.
[2025-03-25] MEDS: TRANEXAMIC ACID 1,000 MG VIAL 1000 MG INJ (14:45)
[2025-03-25] MEDS: ACETAMINOPHEN IV 1,000 MG/100 ML VIAL 400 MG IV (15:01)
[2025-03-25] MEDS: BUPivacaine 0.25% W/ EPI (PF) 30 ML VIAL INJ (15:03)
[2025-03-25] MEDS: LACTATED RINGERS 1,000 ML 42 ML IV ×2 (15:07→15:36)
[2025-03-25] MEDS: AZITHROMYCIN 500 MG in DEXTROSE 5% IN WATER 250 ML 250 MG IV (15:38)
[2025-03-25 15:55] VITALS: BP 137/65; PULSE 87; RESP 15; TEMP 36.4; O2SAT 96
--- NOTE | 2025-03-25 16:00 | SUR.OPER ---
Per OB RN FHR prior to incision in 80s. Viable baby male delivered at 1441. Placenta at 1443. Cord blood and placenta handed off to OB RN.
--- NOTE | 2025-03-25 16:01 | P.OP_ITS ---
Operative Date/Time/Diagnoses
--- NOTE | 2025-03-25 16:01 | PM.OBCS.1 ---
Operative Date/Time/Diagnoses Date of procedure: 03/25/25 Time of procedure: 14:37 Pre-op diagnosis: NRFHT remote from delivery, failure to progress in labor, Pre-Eclampsia without SF, pelvic kidney, IVF , macrosomia Post-op diagnosis: same Procedure & Clinicians Procedure: Primary Low Transverse Same procedure(s) as scheduled: Yes Indications: NRFHT remote from delivery, failure to progress in labor Surgeon: Johanna Burrell Click Yes if Unassisted: No Cocktail Waitress: Moreno Solares Reason for Cocktail Waitress: Cocktail Waitress required for the safe, effective, and timely completion of this surgery. The assistant product manager was necessary to retract upon entry into the abdomen and uterus. Assisted with delivery of the with fundal pressure. Assisted with closure with retraction, holding suture, and closure of the contralateral fascia. Anesthesia Type: Epidural and Local (Marcaine 0.25% with Epi ) Operative Notes Findings: Normal uterus, ovaries, and tubes Closure Type: primary Specimen(s): cord blood and cord pH Intraoperative meds administered: Acetaminophen, Ketorolac, Misoprostol, Pitocin and Tranexamic acid Applied: Catheter Estimated Blood Loss (mL): 400 Procedure in detail: OPERATIVE COURSE: The patient was taken to the operating room where epidural anesthesia was assessed and felt to be adequate. She was then prepared and draped in the normal sterile fashion in the dorsal supine position with a leftward tilt. Vaginal prep and abdominal prep were completed. Ancef and Azithromycin were given for surgical ppx and due to ROM. Anesthesia was tested and found to be adequate. A Pfannensteil skin incision was then made with the scalpel and carried through to the underlying layer of fascia with the scalpel. The fascia was incised in the midline and the incision extended laterally bluntly. The rectus muscles were then in the midline, and the peritoneum was identified and entered bluntly. The peritoneal incision was then extended with good visualization of the bladder. Retraction was provided by the surgical garment assembly supervisor. The bladder blade was then inserted and the vesicouterine peritoneum identified, grasped with pick-ups and entered sharply with the Metzenbaum scissors. The incision was then extended laterally and the bladder flap created digitally. The bladder blade was then reinserted and the lower uterine segment incised in a transverse fashion with the scalpel, with the surgical garment assembly supervisor providing suction. The uterine incision was then extended superolaterally by pulling superolaterally on both sides. Membranes were ruptured and fluid was thick meconium. The bladder blade was removed the infant's head was flexed out of GINGER position and delivered atraumatically, with fundal pressure by the surgical garment assembly supervisor. A nuchal cord was present and reduced before delivery. The nose and mouth were suctioned with bulb suction and the cord was clamped and cut after a 30 second delay due to no respiratory effort. The was handed off to the waiting nursing staff. Cord blood was collected. Time of delivery was 14:41. APGARS were 2, 6 and 9 at one, five and ten minutes respectively. infant reqioed approximately 10 minutes of respiratory support with PPV and CPAP due to low HR. Initial HR after delivery was in the 40s and increased with additional recucitative measures. The placenta was then delivered with gentle cord traction. The uterus was then exteriorized and cleared of all clots and debris. The uterine incision was repaired with 0 Vicryl in a running, locked fashion. A second layer of the same suture was used to obtain excellent hemostasis. 1gTXA and 800mcg buccal cytotec were given for continued bleeding and poor tone, which improved. The uterus was returned to the abdomen. The gutters were cleared of all clots. Perclot was administered over hysterotomy due to slow continued bleeding. Hysterotomy was investigated and found to be hemostatic. The peritoneum was closed with 3-0 vicryl. The fascia was reapproximated with 0 Vicryl in a running fashion. The subcutaneous tissue was reapproximated with 3-0 vicryl. The skin was closed with 4-0 monocryl. The surgical garment assembly supervisor helped with retraction during closures. SPONGE AND NEEDLE COUNTS: Correct x3. DRESSING: ROSALIA with steri-strips ANTICOAGULATION: SCDs applied prior to Surgery Preop antibiotics given (see MAR). The patient was taken to recovery room having tolerated procedure well. Complications: other ( respiratory distress) Baby 1: Delivery Date: 03/25/25 Delivery Time: 14:41 Infant Gender: Male Presentation: vertex Position: Right Occiput Anterior Placental Delivery Description: Spontaneous Cord Vessel Description: 3 Vessels and Nuchal Cord score (1 min): 2 score (5 min): 6 score (10 min): 9 Post-operative Condition: stable Disposition: PACU Aftercare: routine postop
[2025-03-25 16:06] VITALS: BP 131/72; PULSE 84; RESP 15; TEMP 36.4; O2SAT 97
[2025-03-25] MEDS: MORPHINE 2 MG/ML INJ 1 MG IV (17:17)
[2025-03-25 17:42] VITALS: BP 134/77; PULSE 88
[2025-03-25 18:22] VITALS: BP 142/78; PULSE 96
[2025-03-25] MEDS: SERTRALINE 50 MG TABLET 150 MG PO (21:34)
[2025-03-25] MEDS: KETOROLAC 30 MG/ML VIAL IV (21:34)
[2025-03-25 23:28] VITALS: BP 141/66; PULSE 93
[2025-03-25] MEDS: ACETAMINOPHEN 325 MG TABLET 650 MG PO (23:28)
[2025-03-26] MEDS: KETOROLAC 30 MG/ML VIAL IV ×2 (03:32→09:54)
[2025-03-26] MEDS: ACETAMINOPHEN 325 MG TABLET 650 MG PO ×2 (05:08→23:33)
[2025-03-26 06:12] LABS: Add Manual Diff / Slide Review NO; Hematocrit 30.1 % (36-46); Hemoglobin 10.7 g/dL (12.0-16.0); Lymphocytes Absolute Auto 1500 /uL (1100-4500); Mean Corpuscular HGB Conc 35.5 % (30-36); Mean Corpuscular Hemoglobin 32.3 PG (26-34); Mean Corpuscular Volume 90.8 fL (80-100); Platelet Count 169 X10^3/uL (150-400)
[2025-03-26 08:50] VITALS: BP 113/60; PULSE 84
[2025-03-26] MEDS: LABETALOL 100 MG TABLET 200 MG PO ×3 (08:50→21:17)
[2025-03-26] MEDS: LANOLIN OINT 7 GM 1 APPLIC TOP (08:50)
[2025-03-26] MEDS: PRENATAL VIT,CALC/IRON/FOLIC 1 TABLET 1 TAB PO (08:51)
--- NOTE | 2025-03-26 09:12 | PM.OBPN.1 ---
Subjective - OB Subjective Patient comments: no complaints and pain well controlled [place] baby status: doing well [place] feeding status: exclusively breast feeding Narrative: Has not been able to void yet. Pain well controlled. Dressing saturated. Date Patient Seen: 03/26/25 Time Patient Seen: 07:30 Exam Vital Signs (past 8 hours): - 03/26/25 08:50 Pulse Rate 84 Blood Pressure 113/60 Oxygen Delivery Method Room Air Narrative Exam Narrative: Gen: well appearing, NAD Skin: no rashes or pallor Abd: appropriate post-op tenderness, fundus firm below Umbilicus. Dressing saturated with dried blood MSK: scant edema Objective Labs 03/26/25 05:44 03/22/25 19:48 Labs: Laboratory Results - last 24 hr 03/26/25 05:44 WBC 17.6 H RBC 3.31 L Hgb 10.7 L Hct 30.1 L MCV 90.8 MCH 32.3 MCHC 35.5 RDW 13.8 Plt Count 169 Neut % (Auto) 85.6 H Lymph % (Auto) 8.4 L [place] % (Auto) 5.9 Eos % (Auto) 0.0 L Baso % (Auto) 0.1 Neut # (Auto) 66884 H Lymph # (Auto) 1500 [place] # (Auto) 1000 H Eos # (Auto) 0 Baso # (Auto) 0 Assessment & Plan Plan day: 1 plan OB: routine care, routine postop care and follow up 6 weeks Comments: 34 yo G1 now P1 on POD1 following primary CS performed for NRFHT. SHe is doing well PP. complicated by Pre-E, BPs well controlled on PO labatolol 200mg TID at this time - Pain well controlled on oral medications, continue tylenol, ibuprofen and PRN oxycodone - Bleeding minimal - cont Labetalol 200mg TID - control plans: pills - f/up for f/up at 6week PP visit Time-Based Coding :: [TOTAL MINUTES] spent with patient and on the chart (including review of chart, obtaining history, exam, reviewing outside data, placing orders, documenting exam and treatment plan, and counseling patient) on [DATE].
--- NOTE | 2025-03-26 10:45 | P.OP_ITS ---
Operative Date/Time/Diagnoses
--- NOTE | 2025-03-26 10:45 | PM.GYNOP.1 ---
Operative Date/Time/Diagnoses Date of procedure: 03/26/25 Time of procedure: 09:30 Pre-op diagnosis: Request for sterilization Post-op diagnosis: same Procedure & Clinicians Procedure: Procedures Operation Date: 03/25/25 14:30 Actual Procedure Side Surgeon p Section Johanna Burrell MD
[2025-03-26 15:27] VITALS: BP 106/65; PULSE 87
[2025-03-26] MEDS: SIMETHICONE 80 MG TABLET PO (15:40)
[2025-03-26] MEDS: IBUPROFEN 600 MG TABLET PO ×2 (16:34→23:33)
[2025-03-26] MEDS: GABAPENTIN 300 MG CAPSULE PO (17:27)
[2025-03-26] MEDS: SERTRALINE 50 MG TABLET 150 MG PO (21:16)
[2025-03-26 21:17] VITALS: BP 113/60; PULSE 99
[2025-03-27] MEDS: SIMETHICONE 80 MG TABLET PO ×2 (05:00→14:42)
[2025-03-27] MEDS: PRENATAL VIT,CALC/IRON/FOLIC 1 TABLET 1 TAB PO (09:19)
[2025-03-27] MEDS: ACETAMINOPHEN 325 MG TABLET 650 MG PO ×2 (09:19→14:43)
[2025-03-27] MEDS: LABETALOL 100 MG TABLET 200 MG PO ×2 (09:20→14:42)
[2025-03-27] MEDS: MAGNESIUM HYDROXIDE 30 ML UDC PO (09:30)
[2025-03-27 10:45] LABS: Alanine Aminotransferase 13 IU/L (<35); Albumin 3.4 g/dL (3.5-5.0); Albumin Globulin Ratio 1.1 (1.0-2.8); Alkaline Phosphatase 114 U/L (38-126); Blood Urea Nitrogen 12 mg/dL (7-17); Calcium 9.1 mg/dL (8.4-10.2); Carbon Dioxide 22 mmol/L (22-32); Chloride 108 mmol/L (98-107); Estimated Glomerular Filt Rate > 60 mL/min (>60); Globulin 3.2 g/dL (1.7-4.1); Glucose 76 mg/dL (70-99); HEMOLYSIS < 15 (0-50); Potassium 4.2 mmol/L (3.4-5.1); Sodium 136 mmol/L (137-145); Total Protein 6.6 g/dL (6.3-8.2)
[2025-03-27] MEDS: IBUPROFEN 600 MG TABLET PO (12:31)
[2025-03-27] MEDS: CYCLOBENZAPRINE 10 MG TABLET 5 MG PO (12:32)
--- NOTE | 2025-03-27 14:06 | PM.OBDS.1 ---
Discharge Providers Provider Date of admission: 03/22/25 18:47 Discharge Date: 03/27/25 Primary care physician: Jasper CASTILLO Provider Consults: 03/22/25 19:35 Consult to Anesthesiology Urgent Comment: Consulting Provider: Anesthesiologist Reason for consultation: Epidural 03/25/25 16:29 Consult to Plastic Injection Mold Maker Routine Comment: Discharge provider: Johanna Burrell MD Summary Hospital Course Date Patient Seen: 03/27/25 Time Patient Seen: 07:30 Hospital Course: 34 yo G1 who was admitted for OROL for macrosomia and pre-E. conceived via IVF. also complicated by pelvic kidney. induction was initiated with cytotec. While startng induction, blood pressures dana and Labetalol 200mg TID was started. She received 6 doses of cytotec before transitioned to Pitocn for 12 hour. She was then restarted on cytotec. Cannon balloon was attempted but while starting placement, ROM occured with thick mec. Pitocin was restarted. SHe had dfficulty with dose increasing due to intoelrance. She made slow progress over the following 24 hours and discussion was started about movng to CS. While awaiting 2 hours for recheck to assess progress, FHT dropped to 60s for 5 min. After returnig to baseline, decision made to move to CS. CS complicated by FHT again dropping to the 60s. Also complicated by dfifficult pain control and initial of 2 requiring resucitation. CS was otherwise uncomplicated. PP pain control has been difficult. Bleeding is well controlled. Pain is now controlled with oral medications. She s planning on usng OCPS for control, will plan to start at 6 week PP visit. BPs were well controlled on Labetalol. She will follow up for BP check next week. Shge is voiding and passing gas. She is ambulating without difficulty. CMP reassuring before discharge. Peripartum Data Infant Delivery Method: Section complications: none Status at Discharge Cognitive/behavioral status at discharge: oriented Functional status at discharge: independent ambulation Overall status at discharge: patient is back to baseline Time Spent with Patient Time attestation: Total time spent providing and/or coordinating discharge services: Time spent: Greater than 30 minutes Objective Labs 03/26/25 05:44 03/27/25 10:24 Labs: Laboratory Results - last 24 hr 03/27/25 10:24 Sodium 136 L Potassium 4.2 Chloride 108 H Carbon Dioxide 22 BUN 12 Creatinine 0.65 Estimated GFR > 60 BUN/Creatinine Ratio 18.5 Glucose 76 Calcium 9.1 Total Bilirubin 0.2 AST 27 ALT 13 Alkaline Phosphatase 114 Total Protein 6.6 Albumin 3.4 L Globulin 3.2 Albumin/Globulin Ratio 1.1 Exam Vital Signs (past 8 hours): Oxygen Delivery Method Room Air Narrative Exam Narrative: Gen: well appearing, NAD Skin: no rashes or pallor Abd: appropriate post-op tenderness, fundus firm below Umbilicus. Dressing saturated with dried blood unchanged from yesterday MSK: scant edema Discharge Plan Discharge Plan Patient Disposition: Home Discharge orders & Medications Prescriptions: Continued PNV no.95-ferrous fumarate-FA [ Multivitamins] 28 mg iron- 800 mcg tablet 1 tab PO DAILY sertraline 150 mg capsule 150 mg PO DAILY No Action oxycodone 5 mg tablet 5 mg PO Q8H PRN (Reason: pain) Qty: 20 0RF cyclobenzaprine 10 mg tablet 5 mg PO NOW PRN (Reason: Muscle Pain) Qty: 30 0RF labetalol 100 mg tablet 200 mg PO TID Qty: 90 0RF simethicone [Gas Relief 80 (simethicone)] 80 mg tablet,chewable 80 mg PO QID PRN (Reason: Flatulence) Qty: 30 0RF Follow up/Referrals: ProviderJasper [Primary Care Provider, Family Practice] Johanna Burrell MD [Physician, Family Practice] - 05/08/25 1:30 pm Referral Note: Please follow up for your 1 week incision check on April 02 @12:00. Please arrive at 11:45am! Additionally, please follow up for your 6 week appointment on May 08 @1:30pm. Please arrive at 1:15pm! :) Diet/Activity/Treatments Diet: Diet as Tolerated Visit Report/Discharge Packet Instructions: DI for Stand Alone Forms: Patient Portal/API, Stroke Signs & Symptoms Discharge Data Primary Care Provider: ProviderJasper Discharges patient from system. Discharge Date/Time: 03/27/25 15:58
[2025-03-27 15:54] VITALS: BP 113/60; PULSE 99; RESP 15; TEMP 36.4
== END 2025-03-27 15:58 | disposition home or self-care (01) | DRG 788 ==
PROVIDERS: Admitting Provider Family Medicine; Referring Provider Family Medicine; Visit Provider Family Medicine
PROC: 10D00Z1 Extraction of Products of Conception, Low, Open Approach (ICD-10-PCS; CPT 59514; principal; 2025-03-25 14:30)
DX: O14.04 Mild to moderate pre-eclampsia, complicating childbirth (principal); O36.63X0 Maternal care for excessive fetal growth, third trimester, not applicable or unspecified; O76 Abnormality in fetal heart rate and rhythm complicating labor and delivery; Z37.0 Single live birth; Z3A.38 38 weeks gestation of pregnancy
CPT/HCPCS: 36415; 59050; 59200; 76815; 80053; 82570; 84156; 85025; 86850; 86900; 86901; G0379; J0131; J0689; J1100; J1885; J2250; J2270; J2274; J2405; J2590; J2704; J3010; J7060; J7120